=== PATIENT | female | born 1995 | race Caucasian/White ===

== ENCOUNTER 2018-04-25 15:39 | Emergency (ER) | payer SELFPAY ==
[2018-04-25 15:44] VITALS: BP 112/70; PULSE 108; TEMP 98.4; BMI 29.2
[2018-04-25] MEDS ORDERED: DEXAMETHASONE SOD PHOSPHATE 4 MG/1 ML VIAL IM ONE (16:10)
--- NOTE | 2018-04-25 16:14 | PDOC ---
History of Present Illness - General Chief Complaint: Sore Throat Stated Complaint: FEVER/SORE THROAT Time Seen by Provider: 04/25/18 15:50 History Source: Patient Exam Limitations: No Limitations - History of Present Illness Initial Comments: 04/25/18 16:11 22 year old female with no medical or surgical history presents with sorethroat x 1 week with cough, fever and chills. Also reports headache, pain with swallowing and bodyaches. States seen by pmd who started her on pcn x 2 days, taking acetaminophen and ibuprofen alternately for fever and gargling with salt and water. STates after 2 days of abt bid still not feeling better. Denies difficulty swallowing or breathing. Timing/Duration: reports: week Severity: reports: moderate Possible Cause: Yes: unknown cause Associated Symptoms: reports: headache Aspirin Received prior to arrival: Yes: no aspirin today ASA Contraindications(Core Measure): No: Allergy Beta Camilla Contraindications(Core Measure): Yes: Not Prescribed Past History - Travel Traveled outside of the country in the last 30 days: No - Past Medical History Allergies/Adverse Reactions: Allergies Allergy/AdvReac Type Severity Reaction Status Date / Time No Known Allergies Allergy Verified 04/25/18 15:44 Home Medications: Ambulatory Orders NK [No Known Home Medication] 04/25/18 Anemia: Yes COPD: No - Immunization History Immunization Up to Date: Yes - Suicide/Smoking/Psychosocial Hx Smoking Status: No Smoking History: Never smoked Have you smoked in the past 12 months: No Number of Cigarettes Smoked Daily: 0 Hx Alcohol Use: No Drug/Substance Use Hx: No Substance Use Type: None Review of Systems - Review of Systems Able to Perform ROS?: Yes Is the patient limited Turkish proficient: No Constitutional: Yes: Chills, Fever HEENTM: Yes: Throat Pain Respiratory: No: Cough, Shortness of Breath Cardiac (ROS): No: Chest Pain ABD/GI: No: Poor Appetite : No: Dysuria, Discharge Musculoskeletal: No: Muscle Weakness *Physical Exam - Vital Signs Last Vital Signs Temp Pulse Resp BP Pulse Ox 98.4 F 108 H 20 112/70 98 04/25/18 15:41 04/25/18 15:41 04/25/18 15:41 04/25/18 15:41 04/25/18 15:41 - Physical Exam General Appearance: Yes: Nourished, Appropriately Dressed. No: Apparent Distress HEENT: positive: NESS, Muffled/Hoarse voice, Pharyngeal Erythema, Tonsillar Exudate, Tonsillar Erythema, Other (tonsils +2 +3, erythematous pharynx, non enlarged ) Neck: positive: Supple, Lymphadenopathy (R), Lymphadenopathy (L). negative: Rigidity Respiratory/Chest: positive: Lungs Clear, Normal Breath Sounds Cardiovascular: positive: Regular Rate, S1, S2 Extremity: positive: Normal Capillary Refill Neurologic: positive: exterminator II-XII NML intact, Fully Oriented, Alert, Normal Mood/ Affect Moderate Sedation - Procedure Monitoring Vital Signs: Procedure Monitoring Vital Signs Temperature 98.4 F 04/25/18 15:41 Pulse Rate 108 H 04/25/18 15:41 Respiratory Rate 20 04/25/18 15:41 Blood Pressure 112/70 04/25/18 15:41 O2 Sat by Pulse Oximetry (%) 98 04/25/18 15:41 Medical Decision Making - Medical Decision Making 04/25/18 16:17 22 year old female with sorethroat x 1 week on PCN x 2 days throat culture sent decadron 10mg im given encouraged to continue medication as prescribed *DC/Admit/Observation/Transfer Diagnosis at time of Disposition: Sore throat - Discharge Dispostion Disposition: HOME Condition at time of disposition: Good Decision to Admit order: No - Referrals Referrals: Matias Bojorquez MD [Primary Care Provider] - 2 Days - Patient Instructions Printed Discharge Instructions: DI for Strep Throat Additional Instructions: Take penicillin three times daily x 10 days gargle with warm salt water Continue to treat fever with acetaminophen and ibuprofen Return to ed for shortness of breath or difficulty swallowing or breathing - Post Discharge Activity Forms/Work/School Notes: Back to Work
[2018-04-25] MEDS ORDERED: DEXAMETHASONE SOD PHOSPHATE 10 MG/1 ML VIAL ONE (16:15)
[2018-04-25] MEDS ORDERED: DEXAMETHASONE SOD PHOSPHATE 10 MG/1 ML VIAL IM ONE (16:28)
== END 2018-04-25 16:43 | disposition home or self-care (01) ==
LOC: JERFT 15:39
PROC: 3E0233Z Introduction of Anti-inflammatory into Muscle, Percutaneous Approach (ICD-10-PCS; principal; 2018-04-25)
DX: J02.9 Acute pharyngitis, unspecified (principal)
CPT/HCPCS: 87070; 87077; 96372; 99281-25; J1100